=== PATIENT | male | born 1975 | race Caucasian/White ===

== ENCOUNTER 2021-02-19 14:25 | Emergency (ER) | payer SELFPAY ==
--- NOTE | 2021-02-19 16:54 | RAD REPORT ---
EXAM DESCRIPTION: Danette Single View02/19/2021 4:46 pm CLINICAL HISTORY: Shortness of breath COMPARISON: 2016 FINDINGS: Lungs are hyperaerated. The lungs appear clear of acute infiltrate. The heart is normal size IMPRESSION: No acute abnormalities displayed
[2021-02-19] MEDS ORDERED: METHYLPREDNISOLONE 125 MG INJ ONE (17:57)
--- NOTE | 2021-02-19 18:00 | ER ---
Nurse's Notes [facility] Name: Norman Samayoa Age: 45 yrs Sex: Male : 1975 Arrival Date: 02/19/2021 Time: 14:28 Bed 6 Private MD: Diagnosis: Bronchitis, not specified as acute or chronic Presentation: 02/19 14:59 Chief complaint: Patient states: SOB, wheezy for 4 days. No fever. Cough with green ll1 sputum. Coronavirus screen: Client denies travel out of the [place] in the last 14 days. cough unrelated to allergies, difficulty breathing, shortness of breath, Client presents with at least one sign or symptom that may indicate coronavirus-19. Standard/surgical mask placed on the client. Ebola Screen: Patient denies travel to an Ebola-affected area in the 21 days before illness onset. Initial Sepsis Screen: Does the patient meet any 2 criteria? No. Patient's initial sepsis screen is negative. Does the patient have a suspected source of infection? Yes: Productive cough/pneumonia. Risk Assessment: Do you want to hurt yourself or someone else? Patient reports no desire to harm self or others. Onset of symptoms was February 16, 2021. 14:59 Method Of Arrival: Ambulatory ll1 14:59 Acuity: JEFRY 3 ll1 Historical: - Allergies: 14:59 No Known Allergies; ll1 - PMHx: 14:59 Asthma; Bronchitis; Pneumonia; COPD; ll1 - PSHx: 14:59 L arm sx; ll1 - Immunization history:: Flu vaccine is up to date. - Social history:: Smoking status: Patient reports the use of cigarette tobacco products, smokes one pack cigarettes per day. Screenin:35 Abuse screen: Denies threats or abuse. Denies injuries from another. Nutritional hb screening: No deficits noted. Tuberculosis screening: No symptoms or risk factors identified. Fall Risk None identified. Assessment: 17:30 General: Appears in no apparent distress. Behavior is calm, cooperative. Pain: Denies hb pain. Neuro: Level of Consciousness is awake, alert, obeys commands, Oriented to person, place, time, situation. Cardiovascular: Patient's skin is warm and dry. Rhythm is regular. Respiratory: Reports shortness of breath on exertion cough that is Respiratory effort is even, unlabored, Respiratory pattern is regular, symmetrical. GI: No signs and/or symptoms were reported involving the gastrointestinal system. : No signs and/or symptoms were reported regarding the genitourinary system. EENT: No signs and/or symptoms were reported regarding the EENT system. Derm: Skin is pink, warm \T\ dry. Musculoskeletal: No signs and/or symptoms reported regarding the musculoskeletal system. Vital Signs: 14:59 BP 126 / 96; Pulse 85; Resp 18; Temp 98.4; Pulse Ox 98% ; Weight 79.38 kg; Height 5 ft. ll1 11 in. (180.34 cm); Pain 0/10; 14:59 Body Mass Index 24.41 (79.38 kg, 180.34 cm) ll1 ED Course: 14:28 Patient arrived in ED. rg4 14:59 Arm band placed on Patient notified of wait time. ll1 15:01 Triage completed. ll1 16:45 Chest Single View XRAY In Process Unspecified. EDMS 16:57 El[facility] Sellers [facility]C [facility] kb 16:57 Matias Thomas MD is Attending Physician. kb 17:33 Lou Haynes, RN is Primary Nurse. hb 17:35 Patient has correct armband on for positive identification. Bed in low position. Call hb light in reach. Side rails up X 1. 18:25 No provider procedures requiring assistance completed. Patient did not have IV access hb during this emergency room visit. Administered Medications: 17:49 Drug: SOLU-Medrol 125 mg Route: IM; Site: left deltoid; hb Outcome: 17:59 Discharge ordered by MD. kb 18:25 Discharged to home ambulatory. hb 18:25 Condition: stable 18:25 Discharge instructions given to patient, Instructed on discharge instructions, follow up and referral plans. medication usage, Demonstrated understanding of instructions, follow-up care, medications, Prescriptions given X 4. 18:26 Patient left the ED. hb Signatures: Dispatcher [employer] EDSD Elana Sellers FNP-C FNP-Ckb Baxter, Heather, RN Marine Buckley rg4 Yunior Samayoa RN RN ll1
--- NOTE | 2021-02-19 18:00 | EDPHYS ---
Physician Documentation [facility] Name: Norman Samayoa Age: 45 yrs Sex: Male : 1975 Arrival Date: 02/19/2021 Time: 14:28 Bed 6 Private MD: ED Physician Matias Thomas HPI: 02/19 17:57 This 45 yrs old Male presents to ER via Ambulatory with complaints of kb Breathing Difficulty. 17:57 The patient has shortness of breath at rest, and the patient has a history of asthma, kb COPD. Onset: The symptoms/episode began/occurred 4 day(s) ago. Duration: The symptoms are continuous. The patient's shortness of breath has no apparent modifying factors. Associated signs and symptoms: Pertinent positives: productive cough, Pertinent negatives: fever. Severity of symptoms: At their worst the symptoms were mild moderate in the emergency department the symptoms are unchanged. The patient has experienced similar episodes in the past, chronically. The patient has not recently seen a physician. Pt reports he has asthma and COPD, still smokes. States he started having shortness of breath, cough and congestion 4 days ago. Ran out of inhalers. Denies fever. . Historical: - Allergies: 14:59 No Known Allergies; ll1 - PMHx: 14:59 Asthma; Bronchitis; Pneumonia; COPD; ll1 - PSHx: 14:59 L arm sx; ll1 - Immunization history:: Flu vaccine is up to date. - Social history:: Smoking status: Patient reports the use of cigarette tobacco products, smokes one pack cigarettes per day. ROS: 17:56 Constitutional: Negative for fever, chills, and weight loss, MS/Extremity: Negative for kb injury and deformity, Neuro: Negative for headache, weakness, numbness, tingling, and seizure. 17:56 Respiratory: Positive for cough, shortness of breath. Exam: 17:56 Constitutional: This is a well developed, well nourished patient who is awake, alert, kb and in no acute distress. Head/Face: Normocephalic, atraumatic. Respiratory: Respirations even and unlabored. No increased work of breathing, no retractions or nasal flaring. Skin: Warm, dry with normal turgor. Normal color. MS/ Extremity: Pulses equal, no cyanosis. Neurovascular intact. Full, normal range of motion. Neuro: Awake and alert, GCS 15, oriented to person, place, time, and situation. Moves all extremities. Normal gait. 17:56 Respiratory: mild respiratory distress is noted, Respirations: normal, Breath sounds: wheezing: expiratory that is mild, clears with cough. Vital Signs: 14:59 BP 126 / 96; Pulse 85; Resp 18; Temp 98.4; Pulse Ox 98% ; Weight 79.38 kg; Height 5 ft. ll1 11 in. (180.34 cm); Pain 0/10; 14:59 Body Mass Index 24.41 (79.38 kg, 180.34 cm) ll1 MDM: 17:21 Patient medically screened. kb 17:56 Data reviewed: vital signs, nurses notes. Data interpreted: Pulse oximetry: on room air kb is 98 %. Interpretation: normal. Counseling: I had a detailed discussion with the patient and/or guardian regarding: the historical points, exam findings, and any diagnostic results supporting the discharge/admit diagnosis, radiology results, the need for outpatient follow up, a family practitioner, to return to the emergency department if symptoms worsen or persist or if there are any questions or concerns that arise at home. 02/19 15:08 Order name: Chest Single View XRAY; Complete Time: 16:56 kb Administered Medications: 17:49 Drug: SOLU-Medrol 125 mg Route: IM; Site: left deltoid; hb Disposition: 18:38 Co-signature as Attending Physician, Matias Thomas MD. rn Disposition: 02/19/21 17:59 Discharged to Home. Impression: Bronchitis, not specified as acute or chronic. - Condition is Stable. - Discharge Instructions: Acute Bronchitis, [id number]. - Prescriptions for Prednisone 20 mg Oral Tablet - take 1 tablet by ORAL route once daily for 5 days; 5 tablet. Albuterol Sulfate 2.5 mg /3 mL (0.083 %) Inhalation Solution for Nebulization - inhale 1 unit by NEBULIZATION route every 8 hours As needed; 1 box. Zithromax Z- Ayo 250 mg Oral Tablet - take 1 tablet by ORAL route as directed for 5 days Day 1 - take two (2) tablets one time. Day 2, 3, 4 , 5 take one (1) tablet once daily.; 6 tablet. Albuterol Sulfate 90 mcg/actuation - inhale 1-2 puff by INHALATION route every 4-6 hours; 1 Inhaler. - Medication Reconciliation Form, Thank You Letter, Antibiotic Education, Prescription Opioid Use form. - Follow up: Emergency Department; When: As needed; Reason: Worsening of condition. Follow up: Private Physician; When: 2 - 3 days; Reason: Recheck today's complaints, Continuance of care, Re-evaluation by your physician. Signatures: Dispatcher [employer] EDIA Elana Sellers, BIG DATA ENGINEER-C BIG DATA ENGINEER-Matias Gomez MD MD rn Baxter, Heather, RN RN Yunior Montgomery RN RN ll1 Corrections: (The following items were deleted from the chart) 18:26 17:59 02/19/2021 17:59 Discharged to Home. Impression: Bronchitis, not specified as hb acute or chronic. Condition is Stable. Forms are Medication Reconciliation Form, Thank You Letter, Antibiotic Education, Prescription Opioid Use. Follow up: Emergency Department; When: As needed; Reason: Worsening of condition. Follow up: Private Physician; When: 2 - 3 days; Reason: Recheck today's complaints, Continuance of care, Re-evaluation by your physician. kb
[2021-02-19 18:55] VITALS: BP 126/96; TEMP 98.4; O2SAT 98
== END 2021-02-19 18:26 | disposition home or self-care (01) ==
LOC: ER 14:25
DX: J40 Bronchitis, not specified as acute or chronic (principal); J44.9 Chronic obstructive pulmonary disease, unspecified; F17.210 Nicotine dependence, cigarettes, uncomplicated
CPT/HCPCS: 71045; 96372; 99283; J2930